=== PATIENT | male | born 1950 | race Caucasian/White ===

== ENCOUNTER → 2023-11-08 14:36 | Outpatient (REF) | payer MEDICARE, OTHER, SELFPAY | LOC: RAD 14:36 | PROVIDERS: ATTENDING PHYSICIAN Internal Medicine Cardiovascular Disease; FAMILY PHYSICIAN Internal Medicine | DX: I71.43 Infrarenal abdominal aortic aneurysm, without rupture (principal) | CPT/HCPCS: 76770 ==

== ENCOUNTER → 2024-01-16 11:06 | Outpatient (REF) | payer MEDICARE, OTHER, SELFPAY ==
[2024-01-16 12:10] LABS: ALT (SGPT) 26 U/L (0-50); AST (SGOT) 30 U/L (17-59); Albumin 4.1 g/dl (3.5-5.0); Alkaline Phosphatase 70 U/L (38-126); Blood Urea Nitrogen 20 mg/dl (9-20); Calcium 9.7 mg/dl (8.4-10.2); Carbon Dioxide 30 mmol/L (22-30); Chloride 102 mmol/L (98-107); Glucose 134 mg/dl (70-99); Sodium 140 mmol/L (135-145); Total Bilirubin 1.3 mg/dl (0.2-1.3); eGFR > 60.00
[2024-01-16 12:19] LABS: Potassium 4.5 mmol/L (3.5-5.1)
== END ==
LOC: REG 11:06
PROVIDERS: ATTENDING PHYSICIAN Internal Medicine Hematology & Oncology
DX: C61 Malignant neoplasm of prostate (principal); C79.51 Secondary malignant neoplasm of bone
CPT/HCPCS: 36415; 80053; 84153

== ENCOUNTER → 2024-04-09 11:09 | Outpatient (REF) | payer MEDICARE, OTHER, SELFPAY ==
[2024-04-09 13:31] LABS: ALT (SGPT) 30 U/L (0-50); AST (SGOT) 36 U/L (17-59); Albumin 4.4 g/dl (3.5-5.0); Alkaline Phosphatase 80 U/L (38-126); Blood Urea Nitrogen 24 mg/dl (9-20); Calcium 9.7 mg/dl (8.4-10.2); Carbon Dioxide 27 mmol/L (22-30); Chloride 106 mmol/L (98-107); Glucose 118 mg/dl (70-99); Potassium 4.4 mmol/L (3.5-5.1); Sodium 143 mmol/L (135-145); Total Bilirubin 1.2 mg/dl (0.2-1.3); Total Protein 7.3 g/dl (6.3-8.2); eGFR > 60.00
== END ==
LOC: REG 11:09
PROVIDERS: ATTENDING PHYSICIAN Internal Medicine Hematology & Oncology; FAMILY PHYSICIAN Internal Medicine
DX: C61 Malignant neoplasm of prostate (principal); C79.51 Secondary malignant neoplasm of bone
CPT/HCPCS: 36415; 80053; 84153

== ENCOUNTER → 2024-07-02 11:53 | Outpatient (REF) | payer MEDICARE, OTHER, SELFPAY ==
[2024-07-02 13:25] LABS: ALT (SGPT) 30 U/L (0-50); AST (SGOT) 35 U/L (17-59); Albumin 4.4 g/dl (3.5-5.0); Alkaline Phosphatase 60 U/L (38-126); Blood Urea Nitrogen 25 mg/dl (9-20); Calcium 10.2 mg/dl (8.4-10.2); Carbon Dioxide 29 mmol/L (22-30); Chloride 103 mmol/L (98-107); Glucose 111 mg/dl (70-99); Potassium 4.8 mmol/L (3.5-5.1); Sodium 145 mmol/L (135-145); Total Bilirubin 1.1 mg/dl (0.2-1.3); Total Protein 7.5 g/dl (6.3-8.2); eGFR > 60.00
== END ==
LOC: REG 11:53
PROVIDERS: ATTENDING PHYSICIAN Internal Medicine Hematology & Oncology; FAMILY PHYSICIAN Internal Medicine
DX: C61 Malignant neoplasm of prostate (principal); C79.51 Secondary malignant neoplasm of bone
CPT/HCPCS: 36415; 80053; 84153

== ENCOUNTER → 2024-09-03 11:07 | Outpatient (REF) | payer MEDICARE, OTHER, SELFPAY ==
[2024-09-03 13:38] LABS: ALT (SGPT) 30 U/L (0-50); AST (SGOT) 34 U/L (17-59); Albumin 4.7 g/dl (3.5-5.0); Alkaline Phosphatase 70 U/L (38-126); Blood Urea Nitrogen 22 mg/dl (9-20); Carbon Dioxide 30 mmol/L (22-30); Chloride 102 mmol/L (98-107); Glucose 100 mg/dl (70-99); Potassium 5.2 mmol/L (3.5-5.1); Sodium 144 mmol/L (135-145); Total Bilirubin 1.3 mg/dl (0.2-1.3); Total Protein 7.8 g/dl (6.3-8.2); eGFR > 60.00
== END ==
LOC: REG 11:07
PROVIDERS: ATTENDING PHYSICIAN Internal Medicine Hematology & Oncology; FAMILY PHYSICIAN Internal Medicine
DX: C61 Malignant neoplasm of prostate (principal); C79.51 Secondary malignant neoplasm of bone
CPT/HCPCS: 36415; 80053; 84153

== ENCOUNTER → 2024-09-20 10:38 | Outpatient (REF) | payer MEDICARE, OTHER, SELFPAY ==
[2024-09-20 11:45] LABS: HDL Cholesterol 54 mg/dl; LDL Cholesterol, Calculated 80 mg/dl; Total Cholesterol 153 mg/dl (50-199); Triglyceride 98 mg/dl (10-149); Very Low Density Lipoprotein 19 mg/dl (0-30)
== END ==
LOC: REG 10:38
PROVIDERS: ATTENDING PHYSICIAN Internal Medicine; OTHER PHYSICIAN Internal Medicine Cardiovascular Disease
DX: I10 Essential (primary) hypertension (principal); E78.00 Pure hypercholesterolemia, unspecified
CPT/HCPCS: 36415; 80061

== ENCOUNTER → 2024-12-06 10:36 | Outpatient (REF) | payer MEDICARE, OTHER, SELFPAY ==
[2024-12-06 11:25] LABS: % Basophils 0.4 % (0-2); % Eosinophils 3.9 % (0-6); % Immature Granulocytes 0.3 % (0-0.5); % Lymphocytes 20.8 % (20.5-51.1); % Monocytes 7.5 % (1.7-9.3); % Neutrophils 67.1 % (42.2-75.2); Absolute Basophils 0.1 10^3/uL (0-0.2); Absolute Eosinophils 0.4 10^3/uL (0-0.7); Absolute Lymphocytes 2.3 10^3/uL (1.2-3.4); Absolute Monocytes 0.8 10^3/uL (0.1-0.6); Absolute Neutrophils 7.5 10^3/uL (1.4-6.5); Hematocrit 46.5 % (39.0-52.0); Hemoglobin 15.3 g/dL (13.0-18.0); Mean Corp Hgb Conc. 32.9 g/dL (33.0-37.0); Mean Corpuscular Hgb 28.9 pg (27.0-31.0); Mean Corpuscular Volume 87.7 fL (80.0-94.0); Mean Platelet Volume 10.8 fL (7.4-10.4); Nucleated Red Blood Cells % 0 % (-); Platelet Count 207 10^3/uL (130-400); Red Cell Dist. Width 13.5 % (11.5-14.5); White Blood Cell Count 11.1 10^3/uL (4.8-10.8)
[2024-12-06 12:10] LABS: ALT (SGPT) 29 U/L (0-50); AST (SGOT) 32 U/L (17-59); Albumin 4.8 g/dl (3.5-5.0); Alkaline Phosphatase 78 U/L (38-126); Blood Urea Nitrogen 22 mg/dl (9-20); Calcium 10.1 mg/dl (8.4-10.2); Carbon Dioxide 30 mmol/L (22-30); Chloride 102 mmol/L (98-107); Glucose 107 mg/dl (70-99); Potassium 4.6 mmol/L (3.5-5.1); Sodium 142 mmol/L (135-145); Total Bilirubin 1.6 mg/dl (0.2-1.3); Total Protein 7.9 g/dl (6.3-8.2); eGFR > 60.00
== END ==
LOC: REG 10:36
PROVIDERS: ATTENDING PHYSICIAN Internal Medicine Hematology & Oncology; FAMILY PHYSICIAN Internal Medicine
DX: C61 Malignant neoplasm of prostate (principal); C79.51 Secondary malignant neoplasm of bone
CPT/HCPCS: 36415; 80053; 84153; 85025

== ENCOUNTER → 2025-01-15 10:28 | Outpatient (REF) | payer MEDICARE, OTHER, SELFPAY ==
[2025-01-15 11:12] LABS: % Basophils 0.3 % (0-2); % Eosinophils 2.2 % (0-6); % Immature Granulocytes 0.5 % (0-0.5); % Lymphocytes 13.6 % (20.5-51.1); % Monocytes 4.9 % (1.7-9.3); % Neutrophils 78.5 % (42.2-75.2); Absolute Basophils 0.1 10^3/uL (0-0.2); Absolute Eosinophils 0.4 10^3/uL (0-0.7); Absolute Immature Granulocytes 0.1 10^3/uL (0-0.05); Absolute Lymphocytes 2.3 10^3/uL (1.2-3.4); Absolute Monocytes 0.8 10^3/uL (0.1-0.6); Absolute Neutrophils 13.4 10^3/uL (1.4-6.5); Hematocrit 48.3 % (39.0-52.0); Hemoglobin 16.1 g/dL (13.0-18.0); Mean Corp Hgb Conc. 33.3 g/dL (33.0-37.0); Mean Corpuscular Hgb 28.7 pg (27.0-31.0); Mean Corpuscular Volume 86.1 fL (80.0-94.0); Mean Platelet Volume 10.7 fL (7.4-10.4); Nucleated Red Blood Cells % 0 % (-); Platelet Count 262 10^3/uL (130-400); Red Blood Cell Count 5.61 10^6/uL (4.70-6.10); Red Cell Dist. Width 13.2 % (11.5-14.5)
[2025-01-15 12:10] LABS: ALT (SGPT) 32 U/L (0-50); AST (SGOT) 33 U/L (17-59); Albumin 4.7 g/dl (3.5-5.0); Alkaline Phosphatase 83 U/L (38-126); Blood Urea Nitrogen 21 mg/dl (9-20); Calcium 10.1 mg/dl (8.4-10.2); Carbon Dioxide 29 mmol/L (22-30); Chloride 104 mmol/L (98-107); Glucose 115 mg/dl (70-99); Potassium 4.7 mmol/L (3.5-5.1); Sodium 144 mmol/L (135-145); Total Bilirubin 1.1 mg/dl (0.2-1.3); Total Protein 7.9 g/dl (6.3-8.2); eGFR > 60.00
== END ==
LOC: RAD 10:28
PROVIDERS: ATTENDING PHYSICIAN Internal Medicine Hematology & Oncology; FAMILY PHYSICIAN Internal Medicine
DX: C61 Malignant neoplasm of prostate (principal); C79.51 Secondary malignant neoplasm of bone
CPT/HCPCS: 36415; 73502; 80053; 84153; 85025

== ENCOUNTER 2025-03-07 13:12 | Emergency (ER) | payer MEDICARE, OTHER, SELFPAY ==
[2025-03-07] VITALS (18 sets, daily range): BP systolic 83–155; BP diastolic 54–116; BMI 27.6
[2025-03-07 13:50] LABS: % Basophils 0.4 % (0-2); % Eosinophils 0.4 % (0-6); % Immature Granulocytes 0.2 % (0-0.5); % Lymphocytes 16.5 % (20.5-51.1); % Monocytes 8.9 % (1.7-9.3); % Neutrophils 73.6 % (42.2-75.2); Absolute Basophils 0.1 10^3/uL (0-0.2); Absolute Eosinophils 0.1 10^3/uL (0-0.7); Absolute Monocytes 1.1 10^3/uL (0.1-0.6); Absolute Neutrophils 9.1 10^3/uL (1.4-6.5); Hematocrit 47.3 % (39.0-52.0); Mean Corp Hgb Conc. 33.8 g/dL (33.0-37.0); Mean Corpuscular Hgb 29.3 pg (27.0-31.0); Mean Corpuscular Volume 86.6 fL (80.0-94.0); Mean Platelet Volume 11.4 fL (7.4-10.4); Nucleated Red Blood Cells % 0 % (-); Platelet Count 234 10^3/uL (130-400); Red Blood Cell Count 5.46 10^6/uL (4.70-6.10); Red Cell Dist. Width 13.5 % (11.5-14.5); White Blood Cell Count 12.3 10^3/uL (4.8-10.8)
[2025-03-07 13:59] LABS: APTT 26.5 Sec (23.4-35.0); INR 1.04; PT 14.1 Sec (11.4-14.6)
[2025-03-07 14:01] LABS: ALT (SGPT) 27 U/L (0-50); AST (SGOT) 29 U/L (17-59); Albumin 4.8 g/dl (3.5-5.0); Alkaline Phosphatase 77 U/L (38-126); Blood Urea Nitrogen 27 mg/dl (9-20); Calcium 10.3 mg/dl (8.4-10.2); Carbon Dioxide 24 mmol/L (22-30); Chloride 110 mmol/L (98-107); Estimated Creatinine Clearance 48 ml/min; Glucose 136 mg/dl (70-99); Potassium 4.5 mmol/L (3.5-5.1); Sodium 145 mmol/L (135-145); Total Bilirubin 1.3 mg/dl (0.2-1.3); Total Protein 8.1 g/dl (6.3-8.2); eGFR 52.09
[2025-03-07 14:12] LABS: Troponin I 0.028 ng/ml
--- NOTE | 2025-03-07 15:38 | ED.GENMED ---
History of Present Illness
General
Chief Complaint: Chest Pain
Time Seen by Provider: 03/07/25 13:23
History of Present Illness
History of Present Illness:
74-year-old male history of hypertension, hyperlipidemia, CAD with previous stents/CABG presenting with dizziness starting today. Patient states that he was playing golf at the 11th hole when he started feeling dizzy and unwell. Patient denies
chest pain, shortness of breath, palpitations. Patient denies history of atrial fibrillation. Patient states that he has been eating/drinking well. No vomiting, diarrhea or urinary symptoms
Past History
Past History
ED Past Medical History: CAD, Cancer (Prostate cancer), HTN and Hypercholesterolemia
ED Past Surgical History: Appendectomy and Cardiac (CABG X3 vessels, Stent X1,)
Social History
Tobacco: Non-smoker
Alcohol: Occasional
Personal:
Living: with family
Phy Exam
Physical Exam
Physical Exam:
General: Alert, no acute distress
Head: NCAT
Eyes: clear conjunctiva
Neck: supple
Cardiac: Heart tachycardic, irregularly irregular rhythm
Lungs: clear to auscultation bilaterally. No wheezes, rales, or rhonchi. Speaking full unlabored sentences. No respiratory distress.
Abdomen: soft, nondistended nontender. No rebound or guarding.
MSK: no lower extremity edema bilaterally. No deformity
Skin: warm, dry
Neuro: Alert and oriented x3. no focal deficits
Scores
Heart Score for Chest Pain Patients
STEMI patient?: No
History: Slightly or Non-Suspicious
ECG: Normal
Age: >/= 65 years
Risk Factors: >/= 3 Risk Factors or History of CAD
Troponin: </= Normal Limit
Heart Score for Chest Pain Patients: 4
Heart Score Risk: 20.3% MACE over next 6 weeks
Course
Orders/Labs/Results
Orders:
Orders
03/07/25 13:13
Electrocardiogram (*1) Urgent
Reason for Study: Chest Pain
EKG- Treatment ONCE
03/07/25 13:34
Complete Blood Count/With Diff Urgent
Comprehensive Metabolic Panel Urgent
PTT Urgent
Prothrombin Time Urgent
Troponin I Urgent
03/07/25 13:41
Propofol [Diprivan] 20 ml .ROUTE .STK-MED
03/07/25 13:51
Electrocardiogram (*1) Urgent
Reason for Study: Other
Other Reason for Exam: post cardioversion
EKG- Treatment ONCE
Abnormal Lab Results
03/07/25
13:34
WBC 12.3 H 10^3/uL
(4.8-10.8)
MPV 11.4 H fL
(7.4-10.4)
Absolute Neuts (auto) 9.1 H 10^3/uL
(1.4-6.5)
Absolute Monos (auto) 1.1 H 10^3/uL
(0.1-0.6)
Lymphocytes % 16.5 L %
(20.5-51.1)
Chloride 110 H mmol/L
(98-107)
BUN 27 H mg/dl
(9-20)
Creatinine 1.4 H mg/dL
(0.7-1.3)
Glucose 136 H mg/dl
(70-99)
Calcium 10.3 H mg/dl
(8.4-10.2)
03/07/25 13:34
03/07/25 13:34
Vital Signs
Initial and Last Documented VS:
Initial Vital Signs
Temp Pulse Resp BP Pulse Ox
98.9 F 144 24 100/66 98
03/07/25 13:16 03/07/25 13:16 03/07/25 13:16 03/07/25 13:16 03/07/25 13:16
Last Documented Vital Signs
Temp Pulse Resp BP Pulse Ox
98.5 F 74 17 155/89 96
03/07/25 15:40 03/07/25 15:33 03/07/25 15:33 03/07/25 15:42 03/07/25 15:30
Procedures
Moderate Sedation
ASA Risk Score: Class II
Chart and allergies reviewed: Yes
Consent for anesthesia obtained: Yes
Time out completed (validating right patient & procedure): Yes
Moderate Sedation Start Time(when first medication is given): 13:49
History of difficult intubation: No
Airway free of obstruction: No
Patient has a gag reflex: Yes
Patient is able to open mouth: Yes
Patient has no dentures: Yes
Patient has no loose teeth: Yes
Medication administered by Provider during Moderate Sedation: IV Propofol (mg)
Total dose administered: 50
Time drug administered: 13:49
Moderate Sedation Procedure End Time: 14:03
Cardioversion
Indication:: Afib
Performed by:: O'Andre
Synchronized?: Yes
Energy Used: 200 joules
Number of attempts: 1
Successful?: Yes
Complications: no
ASA Risk Score: Class II
Any reaction or bad outcome to prior sedation/anesthesia?: No history of a reaction
Sedation level to be attained: moderate
Chart and allergies reviewed: Yes
Patient reassessed prior to sedation: Yes
Time out completed at (validating right patient & procedure): 13:45
History of difficult intubation: No
Airway free of obstruction: No
Patient has a gag reflex: Yes
Patient is able to open mouth: Yes
Patient has no dentures: Yes
Patient has no loose teeth: Yes
Medication administered by Provider during Moderate Sedation: IV Propofol (mg)
Total dose administered: 50
Time drug administered: 13:49
Start Time: 13:49
Stop Time: 14:05
MDM/Problems Addressed
Differential Diagnosis Includes:
Symptomatic atrial fibrillation, electrolyte abnormality, CAROL, NSTEMI
MDM/Problems Addressed:
74-year-old male presenting with new onset atrial fibrillation with RVR starting today. Initial EKG shows atrial fibrillation at 144 bpm with QRS [address] depressions likely rate related. Given atrial fibrillation started today,
discussed risk versus benefits of conscious sedation with cardioversion with patient versus starting rate controlling medication. Patient agreeable to conscious sedation with cardioversion. Successfully cardioverted patient. Repeat EKG shows
sinus rhythm at 79 bpm with AZ 214 QTc 454 no acute ischemic changes. On reevaluation, patient states that he feels better. Labs reviewed, significant for minimal CAROL with creatinine 1.4, BUN 27. Patient received 500 normal saline. Troponin
within normal limits. Discussed results with patient at bedside. [id number], recommended starting anticoagulation with patient. Patient initially hesitant but then agreeable. potline monitor continues to show normal sinus rhythm and rates in
the 70s, blood pressure wnl. Stable for discharge with cardiology follow-up.
*Critical Care Note
Total Time (30-74mins, 75-104mins- exclusive of procedures): Not Applicable
ED Attending Note
-
Portions of this chart may have been created with voice recognition software.� Occasional wrong word or��sound alike� substitutions may have occurred due to the inherent limitations of voice recognition software.
Discharge Plan
Departure
Patient Disposition: Home (Routine Discharge)
Date of Disposition: 03/07/25
Time of Disposition: 15:36
Patient with high blood pressure during this ER visit?: No
Discharge Problem:
Atrial fibrillation with RVR
Instructions: Atrial fibrillation - Discharge instructions, Chest Pain CBC Follow Up
Prescriptions:
New
Eliquis 5 mg tablet
5 mg PO BID Qty: 90 0RF
No Action
atorvastatin 10 MG tablet
10 mg PO QPM
pediatric multivitamin 1 EACH tablet,chewable
1 ea PO DAILY
aspirin 81 MG tablet,delayed release (DR/EC)
81 mg PO DAILY
lisinopril 10 MG tablet
10 mg PO DAILY
metoprolol tartrate 25 MG tablet
12.5 mg PO BID
coenzyme [id number] E [Co Q-10 (with Vit E)] 1 EACH capsule
1 ea PO DAILY
Referrals:
Daniel Victoria MD [Family Provider, Internal Medicine]
Activity Restrictions/Additional Instructions:
Take Eliquis twice daily
Follow-up with cardiology
Return to the emergency department for chest pain, shortness of breath, palpitations, dizziness or new/worsening symptoms. You are now on a blood thinner. Return to the emergency department for any head trauma, black/bloody stool or nosebleeds
Interventions
Interventions:
*Risk Screen - Suicide Last Done: 03/07/25 13:16
*General Assessment Last Done: 03/07/25 13:16
*Neglect/Abuse Screening Last Done: 03/07/25 15:40
*ED- Fall Risk Assessment Last Done: 03/07/25 15:40
*ED COVID-19 Vaccine History Last Done: 03/07/25 13:57
*Nursing Disposition Last Done: 03/07/25 15:40
ED- Cardiac Assessment Last Done: 03/07/25 13:35
Discharge Date and Time
Discharge Date/Time: 03/07/25 15:45
Print Language: SETSWANA
== END 2025-03-07 15:45 | disposition home or self-care (01) ==
LOC: EMR 13:12
PROVIDERS: EMERGENCY PHYSICIAN Emergency Medicine; FAMILY PHYSICIAN Internal Medicine
DX: I48.91 Unspecified atrial fibrillation (principal); I10 Essential (primary) hypertension; E78.00 Pure hypercholesterolemia, unspecified; Z95.1 Presence of aortocoronary bypass graft
CPT/HCPCS: 99285; 92960; 99152; 80053; 84484; 85025; 85610; 85730; 93005

== ENCOUNTER → 2025-03-12 08:43 | Outpatient (REF) | payer MEDICARE, OTHER, SELFPAY ==
[2025-03-12 09:42] LABS: % Basophils 0.8 % (0-2); % Eosinophils 4.1 % (0-6); % Immature Granulocytes 0.3 % (0-0.5); % Lymphocytes 28.9 % (20.5-51.1); % Monocytes 6.6 % (1.7-9.3); % Neutrophils 59.3 % (42.2-75.2); Absolute Basophils 0.1 10^3/uL (0-0.2); Absolute Eosinophils 0.4 10^3/uL (0-0.7); Absolute Lymphocytes 2.6 10^3/uL (1.2-3.4); Absolute Monocytes 0.6 10^3/uL (0.1-0.6); Absolute Neutrophils 5.4 10^3/uL (1.4-6.5); Hematocrit 48.4 % (39.0-52.0); Hemoglobin 16.1 g/dL (13.0-18.0); Mean Corp Hgb Conc. 33.3 g/dL (33.0-37.0); Mean Corpuscular Hgb 29.2 pg (27.0-31.0); Mean Corpuscular Volume 87.7 fL (80.0-94.0); Mean Platelet Volume 11.2 fL (7.4-10.4); Nucleated Red Blood Cells % 0 % (-); Platelet Count 218 10^3/uL (130-400); Red Blood Cell Count 5.52 10^6/uL (4.70-6.10); Red Cell Dist. Width 13.2 % (11.5-14.5)
[2025-03-12 10:35] LABS: ALT (SGPT) 29 U/L (0-50); AST (SGOT) 32 U/L (17-59); Albumin 4.9 g/dl (3.5-5.0); Alkaline Phosphatase 73 U/L (38-126); Blood Urea Nitrogen 22 mg/dl (9-20); Carbon Dioxide 30 mmol/L (22-30); Chloride 108 mmol/L (98-107); Glucose 108 mg/dl (70-99); Potassium 4.5 mmol/L (3.5-5.1); Sodium 145 mmol/L (135-145); Total Bilirubin 1.3 mg/dl (0.2-1.3); Total Protein 8.4 g/dl (6.3-8.2); eGFR > 60.00
[2025-03-12 10:46] LABS: TSH Reflex To Free T4 3.79 uIU/ml (0.47-4.68)
== END ==
LOC: REG 08:43
PROVIDERS: ATTENDING PHYSICIAN Internal Medicine Hematology & Oncology; FAMILY PHYSICIAN Internal Medicine; OTHER PHYSICIAN Internal Medicine Cardiovascular Disease
DX: C61 Malignant neoplasm of prostate (principal); C79.51 Secondary malignant neoplasm of bone; I48.91 Unspecified atrial fibrillation
CPT/HCPCS: 36415; 80053; 84153; 84443; 85025

== ENCOUNTER → 2025-03-25 10:08 | Outpatient (REF) | payer MEDICARE, OTHER, SELFPAY ==
--- NOTE | 2025-03-25 10:30 | CARDSERVLU ---
Echocardiogram with [facility] completed after protocol screening completed. Allergies verified.
Patent IV site: __left AC___
IV site flushed with 0.9% NaCl pre and post administration.
Diluted bolus method utilized to enhance visualization of ventricular resendiz.
Total volume given: ____ 4.0mL
Patient tolerated all procedures well without complications.
== END ==
LOC: RCS 10:08
PROVIDERS: ATTENDING PHYSICIAN Internal Medicine Cardiovascular Disease; FAMILY PHYSICIAN Internal Medicine
DX: I48.91 Unspecified atrial fibrillation (principal)
CPT/HCPCS: 93306; Q9950

== ENCOUNTER → 2025-03-27 11:17 | Outpatient (REF) | payer MEDICARE, OTHER, SELFPAY | LOC: RCS 11:17 | PROVIDERS: ATTENDING PHYSICIAN Internal Medicine Cardiovascular Disease; FAMILY PHYSICIAN Internal Medicine | DX: I25.10 Atherosclerotic heart disease of native coronary artery without angina pectoris (principal); I48.91 Unspecified atrial fibrillation | CPT/HCPCS: 78452; 93017; A9500; J2785 ==

== ENCOUNTER → 2025-04-02 07:46 | Outpatient (REF) | payer MEDICARE, OTHER, SELFPAY | LOC: PAVMRI 07:46 | PROVIDERS: ATTENDING PHYSICIAN Nurse Practitioner Adult Health; FAMILY PHYSICIAN Internal Medicine; REFERRING PHYSICIAN Internal Medicine Hematology & Oncology | DX: C61 Malignant neoplasm of prostate (principal); C79.51 Secondary malignant neoplasm of bone | CPT/HCPCS: 73723; A9575 ==

== ENCOUNTER 2025-06-14 20:29 | Inpatient (IN) | payer MEDICARE, BC, SELFPAY ==
[2025-06-13] VITALS (14 sets, daily range): BP systolic 139–180; BP diastolic 35–105; BMI 27.6; BMI 27.1
[2025-06-13 12:27] LABS: Hematocrit 43.2 % (39.0-52.0); Hemoglobin 14.7 g/dL (13.0-18.0); Mean Corp Hgb Conc. 34.0 g/dL (33.0-37.0); Mean Corpuscular Volume 86.4 fL (80.0-94.0); Nucleated Red Blood Cells % 0 % (-); Platelet Count 194 10^3/uL (130-400); Red Cell Dist. Width 13.2 % (11.5-14.5)
[2025-06-13 12:38] LABS: ALT (SGPT) 29 U/L (0-50); AST (SGOT) 30 U/L (17-59); Albumin 4.5 g/dl (3.5-5.0); Alkaline Phosphatase 55 U/L (38-126); Blood Urea Nitrogen 25 mg/dl (9-20); Calcium 9.5 mg/dl (8.4-10.2); Carbon Dioxide 25 mmol/L (22-30); Chloride 109 mmol/L (98-107); Estimated Creatinine Clearance 61 ml/min; Glucose 106 mg/dl (70-99); Potassium 4.2 mmol/L (3.5-5.1); Sodium 142 mmol/L (135-145); Total Protein 7.4 g/dl (6.3-8.2); eGFR > 60.00
--- NOTE | 2025-06-13 12:46 | ED.GENMED ---
History of Present Illness
General
Chief Complaint: Chest Pain
Source: patient
Exam Limitations: none
Time Seen by Provider: 06/13/25 12:16
History of Present Illness
History of Present Illness:
74-year-old male with history of atrial fibrillation status post cardioversion on Eliquis presents with exertional chest pain worsening over the past week or so. He states today about 5 to 10 minutes into his 20-minute walk he developed chest
pressure that only resolved when he got home and sat down. He has a history of coronary artery disease requiring a stent in the as well as triple-vessel bypass in 2007. He is followed by cardiology here. No leg swelling or calf pain. At the
time my exam he denies any chest pain. During the episode today he was slightly nauseous without diaphoresis
Past History
Past History
ED Past Medical History: CAD, Cancer (Prostate cancer), HTN and Hypercholesterolemia
ED Past Surgical History: Appendectomy and Cardiac (CABG X3 vessels, Stent X1,)
Social History
Tobacco: Non-smoker
Alcohol: Occasional
Personal:
Living: with family
Phy Exam
Physical Exam
Physical Exam:
General: Well-appearing male no acute respiratory distress
HEENT: Normocephalic atraumatic
Heart: Regular rate and rhythm lungs: Clear no wheeze
Abdomen is soft nontender extremities: No cyanosis or
Scores
Heart Score for Chest Pain Patients
STEMI patient?: No
History: Highly Suspicious
ECG: Nonspecific Repolarization
Age: >/= 65 years
Risk Factors: >/= 3 Risk Factors or History of CAD
Troponin: >1 - <3 x Normal Limit
Heart Score for Chest Pain Patients: 8
Heart Score Risk: 72.7 % MACE over next 6 weeks
Course
Orders/Labs/Results
Orders:
Orders
06/13/25 11:35
EKG [Electrocardiogram (*1)] Urgent
Reason for Study: Chest Pain
EKG- Treatment ONCE
06/13/25 12:08
Electrocardiogram (*1) Urgent
Reason for Study: Chest Pain
Cardiac Monitoring- Treatment ONCE
EKG- Treatment ONCE
IV Insert/Care/Rem.- Treatment PRN
O2 Therapy [RESP] Urgent
Titrate/Wean O2 to maintain O2 sat greater than (%): 90
Special Instructions: Maintain sats >/=90%
Pulse Ox/spot Check [RESP] Urgent
Quantity: 1
Special Instructions: ON ROOM AIR
06/13/25 12:10
Complete Blood Count/With Diff Urgent
Comprehensive Metabolic Panel Urgent
Troponin I Urgent
06/13/25 14:59
Troponin I Urgent
06/13/25 15:02
Aspirin 325 mg PO NOW STA
06/14/25 08:00
Aspirin Chewable [Low Strength Aspirin] 81 mg PO DAILY
Abnormal Lab Results
06/13/25
12:10
MPV 11.0 H fL
(7.4-10.4)
Absolute Monos (auto) 0.7 H 10^3/uL
(0.1-0.6)
Chloride 109 H mmol/L
(98-107)
BUN 25 H mg/dl
(9-20)
Glucose 106 H mg/dl
(70-99)
06/13/25 12:10
06/13/25 12:10
Vital Signs
Initial and Last Documented VS:
Initial Vital Signs
Temp Pulse Resp BP Pulse Ox
97.8 F 72 16 168/99 97
06/13/25 11:38 06/13/25 11:38 06/13/25 11:38 06/13/25 11:38 06/13/25 11:38
Last Documented Vital Signs
Temp Pulse Resp BP Pulse Ox
97.8 F 63 18 161/99 97
06/13/25 11:38 06/13/25 15:05 06/13/25 14:15 06/13/25 14:46 06/13/25 15:05
MDM/Problems Addressed
Differential Diagnosis Includes:
Exertional chest pain in a patient with history of coronary artery disease. Followed cardiology here. Review of chart demonstrates he had a stress echo performed in March of this year which showed ejection fraction of 60 to 65%. Currently no chest
pain EKG shows sinus rhythm with a rate of 68. No ST elevation question possible inversion in aVL and flattening laterally
Troponin is pending. Consider ACS versus deconditioning. Unlikely to be PE secondary to anticoagulated state. Patient is pain-free currently do not suspect dissection
*Pulse Oximetry
SaO2: 96
Oxygen Mode of Delivery: Room air
Patient hypoxic: no
*Critical Care Note
Total Time (30-74mins, 75-104mins- exclusive of procedures): Not Applicable
Update Note
Update Note:
Initial troponin within normal range but not undetectable at 0.022. Discussed with cardiology who saw the patient. They will see the patient in consult. Patient will be admitted to the hospital for possible Child Nutrition Director in the morning. Emergency
room attending and hospitalist made aware
ED Attending Note
-
Portions of this chart may have been created with voice recognition software.� Occasional wrong word or��sound alike� substitutions may have occurred due to the inherent limitations of voice recognition software.
Discharge Plan
Departure
Patient Disposition: Admit
Date of Disposition: 06/13/25
Time of Disposition: 15:18
Presentation/result/management discussed w/ accepting MD/DO: Hospitalist
Discharge Problem:
Chest pain
Prescriptions:
No Action
atorvastatin 10 MG tablet
10 mg PO QPM
metoprolol tartrate 25 MG tablet
12.5 mg PO BID
Eliquis 5 mg tablet
5 mg PO BID Qty: 90 0RF
lisinopril 30 mg Tablet
30 mg PO DAILY
coQ10 (ubiquinol) 100 mg Capsule
100 mg PO DAILY
Referrals:
Daniel Victoria MD [Family Provider, Internal Medicine]
Interventions
Interventions:
*Risk Screen - Suicide Last Done: 06/13/25 11:40
*General Assessment Last Done: 06/13/25 12:06
*Neglect/Abuse Screening Last Done: 06/13/25 11:40
*ED COVID-19 Vaccine History Last Done: 06/13/25 12:06
ED- Cardiac Assessment Last Done: 06/13/25 12:11
Discharge Date and Time
Print Language: LAO
[2025-06-13 12:52] LABS: Troponin I 0.022 ng/ml
--- NOTE | 2025-06-13 14:19 | CON.CAR ---
Addendum entered and electronically signed by Ander Moeller MD 06/13/25 17:06:
I saw and examined the patient.
The [employer] SCARFER TENDER's note was reviewed and I agree with the note.
Comment: 74 y/o male (patient of Dr. Hudson) with PAF (recently diagnosed) on Eliquis, CAD with hx LAD stent 1996, then CABG 2007, and HLD who is here for evaluation of chest discomfort. It certainly seems that his anginal symptoms are becoming more
frequent at this point. This would be more consistent wtih unstable angina. He also has low level troponins detected. GIven his significant risk factors, we will plan on cath tomorrow.
- Heparin gtt tonight
- holding Eliquis
- cath in AM
Original Note:
Consultation
Consultation Request
Date/Time Consultation Requested: 06/13/25 1323
Date/Time Consultation Performed: 06/13/25 1420
Requesting Provider: Jeison Carney
Performing Provider: Addie KILLIAN for Dr. Moeller
Reason for Consultation: chest discomfort
Medical History
-
Chief Complaint: chest discomfort
History of Present Illness:
74 y/o male (patient of Dr. Hudson) with PAF (recently diagnosed) on Eliquis, CAD with hx LAD stent 1996, then CABG 2007, and HLD who is here for evaluation of chest discomfort. He has noticed this mostly with walking and it goes away with rest.
About 5 days ago, it woke him up around 1 AM. Last episode this AM with walking. There is associated nausea. Feels like his previous angina. EKG shows anterolateral T wave abnormalities. Troponin is unremarkable. He has no CP and is in no distress
at the time of my assessment.
Past Medical History
Past Medical History: Arrhythmias, CAD, Cancer (prostate) and Hypercholesterolemia
Social History
Tobacco: Non-Smoker
Family History
Family History: CAD (mom, brother)
Allergies / Home Medications
Allergy/AdvReac Type Severity Reaction Status Date / Time
NKA - No Known Allergies Allergy Unknown - Uncoded 03/07/25 13:16
�Medication �Instructions �Recorded �Confirmed �Type
aspirin 81 mg tablet,delayed 81 mg PO DAILY 09/17/13 12/19/17 History
release
atorvastatin 10 mg tablet 10 mg PO QPM 09/17/13 12/19/17 History
coenzyme [id number]-[id number] E 100 mg-5 1 ea PO DAILY 09/17/13 12/19/17 History
unit capsule (Co Q-10 (with Vit E))
lisinopril 10 mg tablet 10 mg PO DAILY 09/17/13 12/19/17 History
metoprolol tartrate 25 mg tablet 12.5 mg PO BID 09/17/13 12/19/17 History
pediatric multivitamin 1 ea PO DAILY 09/17/13 12/19/17 History
apixaban 5 mg tablet (Eliquis) 5 mg PO BID #90 tabs 03/07/25 Rx
Review of Systems
-
History Source: Patient
All other systems: Negative unless noted
Cardiac: Chest Pain
Abdomen/GI: Nausea
Physical Exam
Vital Signs
Temp Pulse Resp BP Pulse Ox
97.8 F 57 19 149/90 96
06/13/25 11:38 06/13/25 13:30 06/13/25 13:30 06/13/25 13:00 06/13/25 13:30
Lab Results
06/13/25 12:10
06/13/25 12:10
Troponin I 0.022 ng/ml 06/13/25 12:10
Physical Exam
General: Well Developed, Well Nourished and No Apparent Distress
HEENT: Normocephalic and Anicteric
Respiratory: Clear
Cardiac: Regular Rhythm
Musculoskeletal: No Edema
Skin: Warm and Dry
Neuro: AO x 3
Psych: Calm
Impression / Plan
-
Chest discomfort:
-sounds likely typical angina. None at present.
-follow trops and EKG's
-plan for left heart cath in AM- quality control lab technician charge alerted. Will give aspirin in preparation for this.
-if trops rise, would add heparin
-check lipids, on statin- per OP note, did not tolerate higher dosing
CAD with hx stenting, followed by CABG 2007:
-eval as above
PAF:
-stable in SR
-on Eliquis for OAC. Hold AM dose prior to cath.
HTN:
-elevated in ER
-continue ACEI and BB and monitor- may need adjustment upward in BP meds
Data Reviewed
-
EKG: Tracing Personally Visualized and interpreted (SR with ST/T abnormalities inferolateral)
Medical Tests (Nuc Med, Echo etc): Report Reviewed by me (echo 03/2025: Normal left ventricular systolic function. Estimated left ventricular ejection fraction is 60-65% . Wall motion analysis is limited by the image quality. Mild pulmonic
regurgitation Mildly dilated aortic root) and Other (stress test 03/27/25: Small mid inferolateral perfusion defect which is reversible. Defect improves with prone imaging which may suggest its due to soft tissue, but a small area of ischemia cannot
be excluded. Ejection fraction 56%)
Labs: Labs Reviewed by me
--- NOTE | 2025-06-13 15:17 | HPS.HSE ---
Family Physician
-
Family Physician: Daniel Victoria
Chief Complaint
-
Recurrent chest pain
History of Present Illness
Pleasant 74-year-old male with history of coronary artery disease status post stent in 1997 and CABG in 2007, hypertension, A-fib with a recent cardioversion 3 months ago, stress test and anticoagulated with Eliquis and pain and osteoarthritis of
the right hip over the last 6 months which recently got better which preventing him from walking around much and playing golf, recently his right hip pain got better and he is able to walk and start walking again over the last few days anytime he
walks he developed a centrally located chest pain and pressure mild to moderate with no radiation and usually eases up when he rests and sits down admit couple episodes of the nausea and sweating but no vomiting, denies any cough or congestion or
shortness of breath fever or chills or any bleeding. No changes to her urine color
No recent travel or sick contact.
Seen by cardiology planning cardiac cath tomorrow.
Patient awake, alert and oriented x 3 hold appropriate conversation accompanied by the at the bedside
Medical History
Past Medical History
Past Medical History: Reports Other
Additional Past Medical History:
Past medical history
Review:
Coronary artery disease status post LAD stenting in 2017 and CABG 2007
Hypertension
A-fib with cardioversion 3 months ago
Hypertension
Peripheral vascular disease
Dyslipidemia
Prostate cancer
Melanoma
Surgical history:
ALBER cardioversion
Appendectomy
Cardiac cath and stenting
Coronary artery bypass graft
Skin cancer removal for melanoma
Social history: Lives with the independently, no smoking and rarely drinks alcohol and no drug and is independent.
Family history: Positive for hypertension coronary artery disease.
Past Surgical History: Reports Other
Social History
Drug: Other
Living: Other
Family History
Family History: Other
Allergies / Home Medications
Allergies reflects when Allergies were last updated in [employer].
Home Medications with original date entered in [employer]
Allergy/Medication List:
Allergies
Allergy/AdvReac Type Severity Reaction Status Date / Time
NKA - No Known Allergies Allergy Unknown - Uncoded 03/07/25 13:16
Home Medications
atorvastatin 10 mg tablet 10 mg PO QPM 09/17/13
metoprolol tartrate 25 mg tablet 12.5 mg PO BID 09/17/13
apixaban 5 mg tablet (Eliquis) 5 mg PO BID #90 tabs 03/07/25
coQ10 (ubiquinol) 100 mg capsule 100 mg PO DAILY 06/13/25
lisinopril 30 mg tablet 30 mg PO DAILY 06/13/25
Review of Systems
-
A 12 point ROS was completed and negative except as noted: Yes
Physical Exam
Vital Signs
Vital Signs
Temp Pulse Resp BP Pulse Ox
97.8 F 63 18 161/99 97
06/13/25 11:38 06/13/25 15:05 06/13/25 14:15 06/13/25 14:46 06/13/25 15:05
Physical exam:
General: Awake, alert and oriented x3, not in distress and holds appropriate conversation.
HEENT: No active discharge, ecchymosis or bruising, moist lips, tongue and mucous membrane.
Eyes: No discharge or red conjunctiva, no nystagmus, pupils are reactive and equal
Neck:Supple, no JVD no bruit no goiter.
Respiratory: Normal AP contour and diameter, normal chest wall movement, normal respiratory effort, no respiratory distress,
Lungs: Good air entry bilaterally, no wheezing or rhonchi, no rales or crackles
Heart: S1, S2 regular, normal rate, no added sound.
Gastrointestinal: Positive bowel sounds, soft, nontender, no guarding or rigidity or organomegaly
Musculoskeletal: , no chest wall abnormality or tenderness. All joints and extremities have good range of motion, no muscle tenderness or any joint swelling or tenderness.
Extremities: No pitting edema, good peripheral pulses, good range of motion
Skin: Warm and dry, no ulceration, normal color.
Neurological: Awake, alert and oriented x3, good muscle tone,, speech clear and comprehensive, good muscle tone, normal sensory and motor function
Psychiatric: Normal mood, normal thought and judgment, normal affect,
Physical Exam
General: Other
Laboratory Results
-
06/13/25 12:10
06/13/25 12:10
Laboratory Results
Total Bilirubin 1.0 mg/dl (0.2-1.3) 06/13/25 12:10
AST 30 U/L (17-59) 06/13/25 12:10
ALT 29 U/L (0-50) 06/13/25 12:10
Alkaline Phosphatase 55 U/L (38-126) 06/13/25 12:10
Troponin I 0.022 ng/ml 06/13/25 12:10
EKG showed normal sinus rhythm with first-degree AV block DE around 214, evidence of prior infarct in inferior leads with nonspecific, inverted T wave abnormality in anterior lateral leads, otherwise no acute findings.
Data Reviewed
-
Medical Tests (Nuc Med, Echo, EKG etc): Image Personally Visualized and interpreted, Discussed with Patient and Discussed with Family
Lab Data: Labs Reviewed by me, Discussed with Patient and Discussed with Family
Old Records: Reviewed
Impression/Plan
-
IMPRESSION:
74-year-old male with history of coronary artery disease presents with recurrent chest pain triggered by exertion is up with rest, can concern for coronary artery disease while other causes including musculoskeletal or hypertensive urgency as blood
pressure was elevated to be considered, doubt pulm embolism as heart rate is in 60s and maintain normal saturation is already on Eliquis.
Recurrent chest pain:
- Can concerning for coronary artery disease with known history of CABG and stenting.
- Other causes musculoskeletal hypertensive urgency need to be considered as pressure is elevated.
- Doubt pulm embolism
- Seen by cardiology and planning cardiac cath tomorrow
- N.p.o. after midnight
- Hold Eliquis
- Continue metoprolol, lisinopril and monitor vital signs closely
- Monitor vital sign and advise about monitoring blood pressure as he is not checking it regularly.
Hypertensive urgency:
- Blood pressure is been elevated and admits lately not checking it but even prior to this was a little high at home. That may be causing his chest pain.
- For now continue lisinopril and metoprolol
- Further adjustment of medication needed for better control of blood pressure discussed with the patient
Coronary artery disease status post stent and CABG:
- Known history, continue atorvastatin, lisinopril, metoprolol
- Plan for cardiac cath tomorrow
A-fib:
- Status post cardioversion 3 months ago
- Takes Eliquis and metoprolol
- Hold Eliquis for now as she had a dose in the morning already.
All discussed with the patient and the in detail and expressed understanding of the question answered
CODE STATUS full code
DVT prophylaxis Eliquis today and tomorrow pending cardiac catheterization anticoagulation may need to be restarted, for now add SCD
[2025-06-13] MEDS: ASPIRIN 325 MG PO (15:21)
[2025-06-13 15:35] LABS: Troponin I 0.024 ng/ml
[2025-06-13] MEDS: LOPRESSOR 12.5 MG PO (20:37)
[2025-06-13] MEDS: HEPARIN 4000 UNITS IV (20:38)
[2025-06-13] MEDS: HEPARIN 25000 UNITS/250 ML IV (20:38)
[2025-06-13] MEDS: LIPITOR 10 MG PO (20:39)
[2025-06-13 20:46] LABS: APTT 32.1 Sec (23.4-35.0)
[2025-06-13 20:59] LABS: Troponin I 0.025 ng/ml
--- NOTE | 2025-06-13 22:29 | PTCARENOTE ---
Received pt from ER into 2243. Pt is AAOx3 SR with 1st degree HB VSS denies cp. Heparin bolus and gtt started. EKG done labs sent. Pt was oriented to the room and POC discussed including NPO after mn. Call watson within reach.
[2025-06-13] MEDS: APRESOLINE 5 MG IV (23:21)
[2025-06-13 23:28] LABS: Troponin I 0.028 ng/ml
[2025-06-14] VITALS (15 sets, daily range): BP systolic 134–212; BP diastolic 81–119
[2025-06-14] MEDS: ZESTRIL 30 MG PO ×2 (03:25→08:25)
[2025-06-14 03:26] LABS: APTT 133.1 Sec (23.4-35.0)
[2025-06-14 03:56] LABS: Troponin I 0.022 ng/ml
[2025-06-14] MEDS: LOPRESSOR 12.5 MG PO ×2 (05:42→20:01)
--- NOTE | 2025-06-14 06:23 | PTCARENOTE ---
Pt bp was persistently elevated overnight. Hydralazine ivp , Lisinopril, and morning Toprol dose given earlier per CT MAGDALENE Ramirez orders.
[2025-06-14 06:25] LABS: Blood Urea Nitrogen 22 mg/dl (9-20); Calcium 8.9 mg/dl (8.4-10.2); Carbon Dioxide 24 mmol/L (22-30); Chloride 109 mmol/L (98-107); Estimated Creatinine Clearance 74 ml/min; Glucose 95 mg/dl (70-99); HDL Cholesterol 54 mg/dl; LDL Cholesterol, Calculated 73 mg/dl; Potassium 3.8 mmol/L (3.5-5.1); Sodium 140 mmol/L (135-145); Very Low Density Lipoprotein 19 mg/dl (0-30); eGFR > 60.00
--- NOTE | 2025-06-14 07:14 | W.PN.HOSP.TC ---
Today's Communication/Plan
-
See plan
Assessment / Plan
Assessment / Plan
Physical Exam
General: Not in acute distress
HEENT: Normocephalic
Neck: Supple
Lungs: Clear to Auscultation Bilaterally
Heart: S1, S2 present. RRR.
Gastrointestinal: Positive bowel sounds, soft, nontender
Extremities: No cyanosis. No edema.
Skin: Warm and dry
Neurological: Awake, Alert and Oriented x3. Nonfocal/grossly intact.
Psychiatric: Calm. Intact Judgement/Insight
Assessment/Plan
74-year-old male with history of coronary artery disease status post stent in 1997 and CABG in 2007, hypertension, A-fib with a recent cardioversion 3 months prior to presentation, stress test and anticoagulated with Eliquis and pain and
osteoarthritis of the right hip over the 6 months (prior to presentation) which recently got better/resolved -- preventing him from walking around much and playing golf, recently his right hip pain got better and he is able to walk and start walking
again over the last few days anytime he walks, developed a centrally located chest pain and pressure mild to moderate with no radiation and usually eases up when he rests and sits down admit couple episodes of the nausea and sweating but no
vomiting, denied any cough or congestion or shortness of breath fever or chills or any bleeding.
Recurrent chest pain
- Concerning for coronary artery disease with known history of CABG and stenting.
- Seen by cardiology and planning cardiac cath today
- N.p.o. until after cath
- Hold Eliquis. Heparin Drip
- Continue metoprolol, lisinopril and monitor vital signs closely
- Monitor vital sign and advise about monitoring blood pressure as he is not checking it regularly.
Hypertensive urgency
- Continue home lisinopril and metoprolol
- Amlodipine added given persistently high blood pressures
- Low sodium diet when diet is resumed
Coronary artery disease status post stent and CABG
CAD with history of stenting, followed by CABG 2007
- Known history, continue atorvastatin, lisinopril, metoprolol
- Plan for cardiac cath tomorrow
Paroxysmal Atrial Fibrillation
- Status post cardioversion 3 months prior to presentation
- Takes Eliquis and metoprolol
- Hold Eliquis until cath. Heparin Drip given chest pain as above.
Hyperlipidemia
- Does not tolerate more statin than his home statin of Atorvastatin 10 mg PO QPM
- LDL not at goal, goal less than 55. LDL 73 here.
- Consideration for Ezetimibe or Repatha
CODE STATUS full code
DVT prophylaxis: SCDs. Heparin Drip.
Will change to inpatient if patient gets stent from cardiac cath.
Anticipated Discharge: Within 24 hours
Subjective/Interval History
-
Date of Service: June 14, 2025
Patient was seen and examined. He denied any chest pain or shortness of breath at rest.
Objective Data
-
Labs:
Laboratory Results
06/13/25 06/14/25 06/14/25
20:25 03:04 11:15
APTT 32.1 133.1 H Pending
Sodium 140
Potassium 3.8
Chloride 109 H
Carbon Dioxide 24
BUN 22 H
Creatinine 0.9
Glucose 95
Calcium 8.9
Vital Signs:
Vital Signs
Temp Pulse Resp BP Pulse Ox
97.9 F 75 16 179/98 96
06/14/25 02:51 06/14/25 06:30 06/14/25 02:51 06/14/25 05:42 06/14/25 02:51
[2025-06-14] MEDS: LOW STRENGTH ASPIRIN 81 MG PO (08:26)
[2025-06-14 09:28] LABS: Glycohemoglobin (HgbA1c) 6.0 % (4.0-5.6)
--- NOTE | 2025-06-14 10:20 | W.PN.CD ---
Today's Communication / Plan
-
For cath today
As outpatient will offer adding either ezetimibe or Repatha
I reviewed that if afib worsens that he would be a good ablation candidate
I will add amlodipin for better blood pressure control
Impression / Plan
-
Chest discomfort:
- Progressive anginal chest pain remote from PCI and CABG
- IV heparin
- For ammunition assembly i laborer/revascularization
Mixed hyperlipidemia
- Does not tolerate more statin
- LDL not at goal, goal less than 55. LDL 73 here
- Will move to adding either ezetimibe or Repatha
CAD with hx stenting, followed by CABG 2007
PAF:
-stable in SR
-on Eliquis for OAC. Hold AM dose prior to cath.
-I reviewed that if afib worsens that he would be a good ablation candidate
HTN:
-elevated in ER
-continue ACEI and BB and monitor- may need adjustment upward in BP meds
- I will add amlodipine
Subjective:
No CP or palps
Physical Exam
Vital Signs/Labs
Vital Signs
Temp Pulse Resp BP Pulse Ox
98.2 F 65 16 162/103 97
06/14/25 08:14 06/14/25 08:17 06/14/25 08:14 06/14/25 08:17 06/14/25 08:28
06/13/25 06/14/25 06/15/25
06:59 06:59 06:59
Actual Weight 88.1 kg
06/13/25 12:10
06/14/25 03:04
APTT 133.1 Sec (23.4-35.0) H 06/14/25 03:04
Triglycerides 95 mg/dl (10-149) 06/14/25 03:04
LDL Cholesterol, Calc 73 mg/dl 06/14/25 03:04
VLDL Cholesterol, Calc 19 mg/dl (0-30) 06/14/25 03:04
HDL Cholesterol 54 mg/dl 06/14/25 03:04
LAB Results
06/13/25 06/13/25 06/13/25
12:10 14:59 20:25
Troponin I 0.022 0.024 0.025
06/13/25 06/14/25
22:56 03:04
Troponin I 0.028 0.022
Physical Exam
Constitutional: No acute distress
EENT: Anicteric
Cardiovascular: Rhythm & rate is regular and Pedal edema is absent
Respiratory: Respiratory effort normal and Lungs clear to auscul.
GI: Soft and Distention absent
Data Reviewed
-
Date of Service: June 14, 2025
--- NOTE | 2025-06-14 11:04 | CM ---
Reviewed chart. Met with and Mrs. Perkins to review discharge plans. He states prior to admission he resides with his spouse in a two story home with two steps toe nter. He states the primary suite is on the first floor. He states prior to
admission he was independent with ambulation and adls. He states he does not have any DME in the. He states he has a prescription plan and uses [facility]. Medical work-up in progress. The discharge plan is to return home with his spouse when
medically stable.
[2025-06-14 11:42] LABS: APTT 63.2 Sec (23.4-35.0)
[2025-06-14] MEDS: NORVASC 2.5 MG PO (13:19)
--- NOTE | 2025-06-14 17:53 | PTCARENOTE ---
Pt anxiously awaiting cardiac cath, BP 192/90 @13:00. Pt denied any discomfort. Pt states he has 'whitecoat syndrome'. notified, pt given norvasc 2.5mgs @13:20. 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
[2025-06-14 18:30] LABS: ACT-LR - POC 360 Seconds (116-155)
--- NOTE | 2025-06-14 19:33 | ITS.CL.PN ---
Steam Hoist Operator - Procedure Note
Procedure
Procedure Note:
CARDIAC CATHETERIZATION REPORT
Date of Procedure: 06/14/2025
Referring: Dr. Oswaldo Hudson MD
Indication: Unstable angina
PROCEDURE(S)
1. left heart catheterization
2. coronary angiography
3. bypass graft angiography
3. PCI with MISA to LAD
ACCESS: 6F left radial artery (closure: radial band)
CATHETERS
1. 6F JR4
2. 6F JL4
3. 6F MISHA
4. 6F EBU3.75 guide
MODERATE SEDATION: 90 minutes of moderate sedation was utilized. An independent medical numerical control operator was present to assist with and help manage the patient's level of consciousness and physiologic status.
HEMODYNAMIC DATA
LV 171/17 (EDP 21) mmHg
AO 168/95 (mean 126) mmHg
CORONARY ANGIOGRAPHY
Dominance: Right
LM: large vessel with mild distal tapering
LAD: large vessel giving rise to two small diagonal branches. There is a prior stent in the proximal LAD with 95% ISR and TIMI2 flow distally. D1 is totally occluded and supplied via the SVG.
LCx: moderate caliber vessel giving rise to a large OM1, small OM2, and small OM3. There is mild diffuse disease and a focal 60% stenosis in the proximal OM1. Competitive flow is seen in the OM1.
RCA: large vessel giving rise to a large RPDA and three small RPL branches. There is mild non-obstructive disease.
BYPASS GRAFT ANGIOGRAPHY:
LOPEZ-LAD: the LOPEZ is atretic and terminates prior to the LAD.
SVG-Diag-OM: the SVG form a patent anastomosis with the the diagonal where there is ~80% narrowing in the diagonal immediately proximal and distal to the anastomosis but brisk flow antegrade and retrograde back to the proximal diagonal COACH. The SVG
subsequently forms a patent anastomosis with the large marginal branch which fills briskly and provides retrograde flow back to the distal OM branches with competitive flow seen from the proximal LCx.
PCI with MISA to LAD
The left main was engaged with an EBU 3.75 guide catheter. A Runthrough wire was able to traverse the lesion but unable to be advanced distally in the LAD due to friction within the lesion segment. A whisper wire was successfully able to transverse
the lesion and was placed in the distal LAD. The Runthrough wire was left in place to serve as a valentín wire and to provide cutting angioplasty effect from subsequent balloon inflations over the Whisper. Serial balloon inflation was performed with a
2.0 mm semicompliant balloon with significant waist noted at the site of severe stenosis. Further lesion preparation was performed with a 2.5 mm NC balloon to high-pressure also with waist noted. Due to technical issues with the IVUS system, images
were unable to be displayed from the catheter. Angiographically there appeared to be at least moderate calcification outside the stent at the site of the most severe stenosis. The decision was made to proceed with further very high pressure NC
balloon inflation with bailout Shockwave lithotripsy if still unable to achieve lesion expansion. With the aid of a 6 Syrian Guideliner, a 2.75 mm NC balloon was delivered inflated at very high pressure (24 mike for 30 seconds serially). This
resulted in full expansion and resolution of the residual waist. A 2.75 x 30 mm Vickey frontier Drugeluting stent was selected but was unable to be delivered distally. Thus, using a 2.0 mm semicompliant balloon the 6 Syrian GuideLiner was inchwormed
distally in the LAD allowing delivery and unsheating of the stent which was deployed at 16 mike with full expansion. Postdilation was performed to the distal edge with a 2.5 mm NC balloon to 16 mike. Attempts at delivering a 2.75 NC balloon were met
with difficulty, with the balloon failing to advance past the proximal stent edge. Multiple attempts were made to successfully deliver the balloon including unsuccessful reattempts at inchworming with the 2.0mm semicompliant balloon and use of a
valentín wire. Ultimately, downsizing to a 5 Syrian Guideliner allowed for successful distal inchworming and subsequent delivery of the 2.5 mm NC balloon which was deployed to high-pressure serially sparing the distal edge. Final angiographic result
was excellent. The wire and guide were removed and a TR band placed. The patient was loaded 600 mg of Plavix.
RADIATION: dose 1240 mGy; DAP 71.1 Gy*cm2; fluoroscopy time 50.9 min
CONCLUSIONS
1. Mildly elevated LV filling pressure and no aortic stenosis
2. Coronary angiography and bypass graft angiography as described with new severe ISR in the proximal LAD stent and TIMI2 flow distally.
3. Successful PCI with MISA to proximal LAD (2.75 x 30 mm Vickey Roscoe drug-eluting stent postdilated to high-pressure with a 2.75 mm NC balloon)
RECOMMENDATIONS
1. Triple therapy with ASA/Plavix/Eliquis for 1 week followed by Eliquis/Plavix.
2. Aggressive secondary prevention of CAD and cardiac rehab
Copy to: Dr. Oswalod Hudson MD (oyster floater); Dr. Daniel Victoria MD (PCP)
Signed: Pradip Raymond MD, PhD
[2025-06-14] MEDS: LIPITOR 40 MG PO (20:01)
--- NOTE | 2025-06-14 21:24 | PTCARENOTE ---
Pt rec'd post cath awake,alert. Left radial site with hematoma upon arrival. lab specialist staff placed 2nd R band above site after pressure held manually by 2nd technical laboratory asst staff. Hematoma reduced. Left radial site dry with good radial pulse. Hand is cool
and dusky with R band in place, good radial pulse noted-pt denies discomfort. Pt aware of limb restrictions. IVF completed. Heparin drip to be restarted at midnight.
[2025-06-15] MEDS: HEPARIN 25000 UNITS/250 ML IV (00:08)
[2025-06-15 02:48] VITALS: BP 170/82
--- NOTE | 2025-06-15 02:51 | PTCARENOTE ---
At 0235 Left radial drsg noted to bleeding. drsg removed, pressure held x 10 min with hemostasis achieved. area cleansed with nss and new drsg placed.
[2025-06-15 06:29] LABS: Hematocrit 42.9 % (39.0-52.0); Hemoglobin 15.0 g/dL (13.0-18.0); Mean Corp Hgb Conc. 35.0 g/dL (33.0-37.0); Mean Corpuscular Volume 85.8 fL (80.0-94.0); Platelet Count 178 10^3/uL (130-400); Red Cell Dist. Width 13.2 % (11.5-14.5)
[2025-06-15 06:43] LABS: APTT 79.0 Sec (23.4-35.0)
[2025-06-15 07:25] LABS: Blood Urea Nitrogen 20 mg/dl (9-20); Carbon Dioxide 25 mmol/L (22-30); Estimated Creatinine Clearance 67 ml/min; eGFR > 60.00
[2025-06-15 07:50] LABS: Calcium 9.5 mg/dl (8.4-10.2); Chloride 107 mmol/L (98-107); Glucose 106 mg/dl (70-99); HDL Cholesterol 60 mg/dl; LDL Cholesterol, Calculated 70 mg/dl; Potassium 4.1 mmol/L (3.5-5.1); Sodium 139 mmol/L (135-145); Very Low Density Lipoprotein 15 mg/dl (0-30)
--- NOTE | 2025-06-15 08:02 | W.PN.HOSP.TC ---
Today's Communication/Plan
-
Discharge today
Assessment / Plan
Assessment / Plan
Physical Exam
General: Not in acute distress
HEENT: Normocephalic
Neck: Supple
Lungs: Clear to Auscultation Bilaterally
Heart: S1, S2 present. RRR.
Gastrointestinal: Positive bowel sounds, soft, nontender
Extremities: No cyanosis. No edema.
Skin: Warm and dry
Neurological: Awake, Alert and Oriented x3. Nonfocal/grossly intact.
Psychiatric: Calm. Intact Judgement/Insight
Assessment/Plan
74-year-old male with history of coronary artery disease status post stent in 1997 and CABG in 2007, hypertension, A-fib with a recent cardioversion 3 months prior to presentation, stress test and anticoagulated with Eliquis and pain and
osteoarthritis of the right hip over the 6 months (prior to presentation) which recently got better/resolved -- preventing him from walking around much and playing golf, recently his right hip pain got better and he is able to walk and start walking
again over the last few days anytime he walks, developed a centrally located chest pain and pressure mild to moderate with no radiation and usually eases up when he rests and sits down admit couple episodes of the nausea and sweating but no
vomiting, denied any cough or congestion or shortness of breath fever or chills or any bleeding.
Unstable angina status post PCI to LAD for New Severe In-Stent Restenosis (ISR) on 06/14/25
- Concerning for coronary artery disease with known history of CABG and stenting.
- Seen by cardiology
- Continue Eliquis
- Continue metoprolol, lisinopril and monitor vital signs closely
- Continue Eliquis, Plavix and Aspirin triple therapy for 7 days (day 1 is 06/15/25, and Day 7 will be 06/21/25); on 06/22/25, stop Aspirin but continue Plavix and Eliquis
- Cardiac Rehab
Mildly elevated LV filling pressure on Cardiac Cath 06/14/25
Hypertensive urgency
- Continue home lisinopril and metoprolol
- Amlodipine added given persistently high blood pressures
- Low sodium diet when diet is resumed
- Patient feels this is related to hospitalization and does NOT want additional meds; cardiology and PCP will monitor outpt -- will still offer/send Amlodipine on discharge so that patient can take it if he wants to
Coronary artery disease status post stent and CABG
CAD with history of stenting, followed by CABG 2007
- Known history, continue atorvastatin, lisinopril, metoprolol
- Cardiac cath with stent above
Paroxysmal Atrial Fibrillation
- Status post cardioversion 3 months prior to presentation
- Takes Eliquis and metoprolol
- Continue Eliquis
Hyperlipidemia
- Does not tolerate more statin than his home statin of Atorvastatin 10 mg PO QPM
- LDL not at goal, goal less than 55. LDL 73 here.
- Consideration for Ezetimibe or Repatha -- discuss with outpatient cardiology office in the upcoming week
CODE STATUS full code
DVT prophylaxis: SCDs. Eliquis
More than 30 minutes spent in discharge including
Final examination of the patient
Summarizing hospital stay
Instructions for continuing care to all relevant caregivers
Preparation of discharge records, prescriptions, and referral forms
Total time spent (in minutes): 38
Anticipated Discharge: Today
Subjective/Interval History
-
Date of Service: June 15, 2025
Patient was seen and examined. He denied any chest pain, shortness of breath, or any other complaints.
Objective Data
-
Labs:
Laboratory Results
06/14/25 06/15/25 06/15/25
18:20 06:19 13:00
WBC 11.3 H
Hgb 15.0
Hct 42.9
Plt Count 178
APTT Cancelled 79.0 H Pending
Sodium 139
Potassium 4.1
Chloride 107
Carbon Dioxide 25
BUN 20
Creatinine 1.0
Glucose 106 H
Calcium 9.5
Vital Signs:
Vital Signs
Temp Pulse Resp BP Pulse Ox
98.3 F 74 18 170/82 98
06/15/25 02:51 06/15/25 06:15 06/15/25 02:51 06/15/25 02:48 06/15/25 02:51
I&O
06/14/25 06/15/25 06/16/25
06:59 06:59 06:59
Intake Total 120 / 120
Output Total 300 / 300
Balance -180 / -180
[2025-06-15 08:06] VITALS: BP 129/90
[2025-06-15] MEDS: LOPRESSOR PO (08:31)
[2025-06-15] MEDS: LOW STRENGTH ASPIRIN 81 MG PO (08:31)
[2025-06-15] MEDS: PLAVIX 75 MG PO (08:32)
[2025-06-15] MEDS: ZESTRIL 30 MG PO (08:33)
[2025-06-15] MEDS: ELIQUIS 5 MG PO (08:42)
[2025-06-15] MEDS: LOPRESSOR 12.5 MG PO (08:43)
--- NOTE | 2025-06-15 11:15 | PTCARENOTE ---
Pt ambulated in [place] for 20 min, lashaun well, no c/o chest pain.
[2025-06-15 11:49] VITALS: BP 155/94
--- NOTE | 2025-06-15 13:40 | W.PN.CD ---
Today's Communication / Plan
-
Eliquis plavix aspirin for 7 days then plavix eliquis thereafter
OK to d/c
will setup follow up
Impression / Plan
-
Unstable anigna s/p PCI to LAD
- Eliquis plavix aspiprin until Tuesday; then drop aspirin and continue plavix Eliquis
Mixed hyperlipidemia
- Does not tolerate more statin
- LDL not at goal, goal less than 55. LDL 73 here
- Will move to adding either ezetimibe or Repatha
CAD with hx stenting, followed by CABG 2007
- as above
PAF:
-SR
- resume Eliquis
HTN:
-elevated in ER
-continue ACEI and BB and monitor- may need adjustment upward in BP meds
- Feels related to hospitalization does NOT want additoinal meds; will monitor outpt
Subjective:
Feels well ready to d/c
Physical Exam
Vital Signs/Labs
Vital Signs
Temp Pulse Resp BP Pulse Ox
98.1 F 84 14 129/90 97
06/15/25 11:48 06/15/25 11:48 06/15/25 11:48 06/15/25 08:33 06/15/25 11:48
06/14/25 06/15/25 06/16/25
06:59 06:59 06:59
Actual Weight 194 lb 3.636 oz
06/15/25 06:19
06/15/25 06:19
APTT Cancelled 06/15/25 13:00
Triglycerides 79 mg/dl (10-149) 06/15/25 06:19
LDL Cholesterol, Calc 70 mg/dl 06/15/25 06:19
VLDL Cholesterol, Calc 15 mg/dl (0-30) 06/15/25 06:19
HDL Cholesterol 60 mg/dl 06/15/25 06:19
LAB Results
06/13/25 06/13/25 06/13/25
12:10 14:59 20:25
Troponin I 0.022 0.024 0.025
06/13/25 06/14/25
22:56 03:04
Troponin I 0.028 0.022
Physical Exam
Constitutional: No acute distress and Comfortable
EENT: Anicteric
Cardiovascular: Rhythm & rate is regular and Pedal edema is absent
Respiratory: Respiratory effort normal and Lungs clear to auscul.
GI: Soft
Neuro/Psych: AO x 3
Other: Cath Site (c/d/i)
Data Reviewed
-
Date of Service: June 15, 2025
Medical Decision Making: Reviewed Test Results
EKG: Tracing Personally Visualized and interpreted (sr)
Echo: Report Reviewed by me
Labs: Labs Reviewed by me
--- NOTE | 2025-06-15 14:23 | W.DCSUMMARY ---
Discharge Summary
Discharge Data
Date of Admission: 06/13/25
Date of Discharge: 06/15/25
Total time spent discharging patient (in min): 38
-
Pending Results: No
Hospital Course
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 The chest pain mainly came on with exertion -- after walking for
several minutes. Patient said the chest pain felt like his previous angina kind of chest pain. Heparin Drip was started, and his home Eliquis was held. Given his high blood pressure, Amlodipine was added to his blood pressure regimen. On 06/14/25,
patient had cardiac cath, and it showed mildly elevated LV filling pressure and no aortic stenosis, coronary angiography and bypass graft angiography as described with new severe ISR in the proximal LAD stent and TIMI2 flow distally and successful
PCI with MISA to proximal LAD (2.75 x 30 mm Vickey Bent drug-eluting stent postdilated to high-pressure with a 2.75 mm NC balloon). Paper Reel Operator recommended triple therapy with ASA/Plavix/Eliquis for 1 week followed by discontinuation of Aspirin
but continuation of Eliquis/Plavix, as well as aggressive secondary prevention of CAD and cardiac rehab. Patient's statin was increased and he tolerated it in the hospital (it was noted previously that patient did not tolerate increased dose of
statin). Patient was doing well and stable for discharge.
Discharge Plan
-
Patient Disposition: Home (Routine Discharge)
Discharge Diagnosis/Procedures: Angioplasty and stent to Left Anterior Descending artery
Unstable angina status post PCI to LAD for New Severe In-Stent Restenosis (ISR) on 06/14/25
Mildly elevated Left Ventricular filling pressure on Cardiac Cath 06/14/25
Hypertensive urgency
Coronary artery disease status post stent, followed by CABG in 2007
CAD with history of stenting, followed by CABG 2007
Paroxysmal Atrial Fibrillation
Hyperlipidemia
Condition: Good
Diet: Low Fat, Low Cholesterol, Low Sodium and 2 Gram Sodium
Activity: As tolerated
Blood Work: CBC, BMP and Magnesium with your primary care provider's office in 3 to 4 days
Other Services: Cardiac Rehab
Instructions: Apixaban, Amlodipine, Aspirin, Atorvastatin, Clopidogrel
Stand Alone Forms: DC Instructions- Cath/EP Lab
Referrals:
Johanna Daniel CRNP [Specified Professional Personl, Cardiology] - 07/09/25 9:40 am
Daniel Victoria MD [Family Provider, Internal Medicine] - in less than 1 week
Referral Note: Hospitalization follow-up for stenting of severe in-stent restenosis of cardiac stent. Will need repeat CBC, BMP on 06/17/25 to 06/21/25 at some point
Additional Discharge Medication Instructions: Continue Eliquis, Plavix and Aspirin triple therapy for 7 days (Day 1 is 06/15/25, and Day 7 will be 06/21/25), HOWEVER, starting on 06/22/25, STOP Aspirin BUT CONTINUE taking Plavix and Eliquis
Once you go home, your next dose of Aspirin 81 mg daily (which you will take through 06/21/25, and then stop, as above) is on 06/16/25.
Amlodipine is a new medication which is being prescribed to help control your blood pressure.
Atorvastatin has been increased to 40 mg daily (from your home 10 mg daily) -- this is so that you have more cardioprotective effects -- and this is very important. If you cannot tolerate the newly increased Atorvastatin at this dose of 40 mg daily,
please contact the outpatient cardiology office right away. In such a case (in which you cannot tolerate increased Atorvastatin dose), your Atorvastatin dose would have to be decreased, and then you would need to be started on Ezetimibe or Repatha
as soon as possible.
CONTACT YOUR OUTPATIENT CARDIOLOGY OFFICE FOR REFILLS ON THE ABOVE MEDICATIONS (EXCEPT THE ASPIRIN)
Prescriptions:
New
atorvastatin 40 mg Tablet
40 mg PO QPM Qty: 30 1RF
aspirin 81 mg Tablet,Chewable
81 mg PO DAILY Qty: 6 0RF
Rx Instructions:
Start on 06/16/25. Continue through 06/21/25, and then stop.
amlodipine 5 mg Tablet
2.5 mg PO DAILY Qty: 30 0RF
clopidogrel 75 mg Tablet
75 mg PO DAILY Qty: 30 11RF
Continued
metoprolol tartrate 25 MG tablet
12.5 mg PO BID
Eliquis 5 mg tablet
5 mg PO BID Qty: 90 0RF
lisinopril 30 mg Tablet
30 mg PO DAILY
coQ10 (ubiquinol) 100 mg Capsule
100 mg PO DAILY
Discontinued
atorvastatin 10 MG tablet
10 mg PO QPM
Discharge Orders:
Discharge Patient (As Directed); Ordered 06/15/25
Ordered By: Declan Catherine
Care Plan Goals
Care Plan Goals:
Problem: Readiness for enhanced knowledge related to diagnosis and treatment plan
Goal: Understand your diagnosis and treatment plan needs, including medications if applicable.
Instructions: Know your diagnosis, underlying causes and treatment plan options, including medications if applicable. Consult with your health care team to learn about your diagnosis and treatment plan, including medications if applicable.
Discharge Date and Time
Discharge Date/Time: 06/15/25 14:55
Print Language: [email or web address]
[2025-06-17 07:58] LABS: ACT-LR - POC 287 Seconds (116-155)
[2025-06-17 07:58] LABS: ACT-LR - POC > 397 Seconds (116-155)
[2025-06-17 07:58] LABS: ACT-LR - POC > 397 Seconds (116-155)
== END 2025-06-15 14:55 | disposition home or self-care (01) | DRG 322 ==
LOC: IVU 20:29
PROVIDERS: Nurse Practitioner; Nurse Practitioner Family; Physician Assistant; Student in an Organized Health Care Education/Training Program; ADMITTING PHYSICIAN Internal Medicine; ATTENDING PHYSICIAN Hospitalist; CONSULT PHYSICIAN Internal Medicine Cardiovascular Disease; EMERGENCY PHYSICIAN Emergency Medicine; FAMILY PHYSICIAN Internal Medicine
PROC: 4A023N7 Measurement of Cardiac Sampling and Pressure, Left Heart, Percutaneous Approach (ICD-10-PCS; 2025-06-14)
PROC: B2121ZZ Fluoroscopy of Single Coronary Artery Bypass Graft using Low Osmolar Contrast (ICD-10-PCS; 2025-06-14)
PROC: 027034Z Dilation of Coronary Artery, One Artery with Drug-eluting Intraluminal Device, Percutaneous Approach (ICD-10-PCS; 2025-06-14)
PROC: B2111ZZ Fluoroscopy of Multiple Coronary Arteries using Low Osmolar Contrast (ICD-10-PCS; 2025-06-14)
DX: T82.855A Stenosis of coronary artery stent, initial encounter (principal); I25.110 Atherosclerotic heart disease of native coronary artery with unstable angina pectoris; I48.0 Paroxysmal atrial fibrillation; I10 Essential (primary) hypertension; I73.9 Peripheral vascular disease, unspecified; E78.2 Mixed hyperlipidemia; M16.11 Unilateral primary osteoarthritis, right hip; I16.0 Hypertensive urgency; Y83.1 Surgical operation with implant of artificial internal device as the cause of abnormal reaction of the patient, or of later complication, without mention of misadventure at the time of the procedure; Y92.9 Unspecified place or not applicable; Z82.49 Family history of ischemic heart disease and other diseases of the circulatory system; Z79.82 Long term (current) use of aspirin; Z85.820 Personal history of malignant melanoma of skin; Z85.46 Personal history of malignant neoplasm of prostate; Z79.01 Long term (current) use of anticoagulants; Z95.1 Presence of aortocoronary bypass graft
CPT/HCPCS: 80048; 80053; 80061; 83036; 84484; 85025; 85027; 85347; 85730; 92972; 93005; 93459; 99152; 99153; 99285; C1725; C1753; C1761; C1769; C1874; C1894; C9600; Q9967

== ENCOUNTER → 2025-06-18 13:08 | Outpatient (REF) | payer MEDICARE, OTHER, SELFPAY ==
[2025-06-18 13:43] LABS: Hematocrit 42.7 % (39.0-52.0); Hemoglobin 14.2 g/dL (13.0-18.0); Mean Corp Hgb Conc. 33.3 g/dL (33.0-37.0); Mean Corpuscular Volume 87.3 fL (80.0-94.0); Nucleated Red Blood Cells % 0 % (-); Platelet Count 202 10^3/uL (130-400); Red Cell Dist. Width 13.7 % (11.5-14.5)
[2025-06-18 14:03] LABS: ALT (SGPT) 39 U/L (0-50); AST (SGOT) 34 U/L (17-59); Albumin 4.5 g/dl (3.5-5.0); Alkaline Phosphatase 55 U/L (38-126); Blood Urea Nitrogen 33 mg/dl (9-20); Calcium 10.0 mg/dl (8.4-10.2); Carbon Dioxide 28 mmol/L (22-30); Chloride 107 mmol/L (98-107); Glucose 91 mg/dl (70-99); Magnesium 2.3 mg/dl (1.6-2.3); Potassium 4.8 mmol/L (3.5-5.1); Sodium 141 mmol/L (135-145); Total Protein 7.6 g/dl (6.3-8.2); eGFR > 60.00
[2025-06-18 15:16] LABS: PSA, Total - Diagnostic 118.00 ng/ml (0.0-4.0)
== END ==
LOC: REG 13:08
PROVIDERS: ATTENDING PHYSICIAN Internal Medicine Hematology & Oncology; FAMILY PHYSICIAN Internal Medicine; REFERRING PHYSICIAN Internal Medicine Cardiovascular Disease
DX: C61 Malignant neoplasm of prostate (principal); C79.51 Secondary malignant neoplasm of bone; I25.10 Atherosclerotic heart disease of native coronary artery without angina pectoris; Z95.5 Presence of coronary angioplasty implant and graft; I48.0 Paroxysmal atrial fibrillation; I10 Essential (primary) hypertension; E78.00 Pure hypercholesterolemia, unspecified; I71.43 Infrarenal abdominal aortic aneurysm, without rupture; Z09 Encounter for follow-up examination after completed treatment for conditions other than malignant neoplasm
CPT/HCPCS: 36415; 80053; 83735; 84153; 85025

== ENCOUNTER 2025-08-02 10:37 | Outpatient (RCR) | payer MEDICARE, OTHER, SELFPAY | END 2025-08-02 23:59 | disposition home or self-care (01) | LOC: CRHB 10:37 | PROVIDERS: ATTENDING PHYSICIAN Internal Medicine Cardiovascular Disease | DX: I25.10 Atherosclerotic heart disease of native coronary artery without angina pectoris (principal); Z95.5 Presence of coronary angioplasty implant and graft | CPT/HCPCS: G0422; G0423 ==

== ENCOUNTER → 2025-08-14 11:03 | Outpatient (REF) | payer MEDICARE, OTHER, SELFPAY ==
[2025-08-14 12:13] LABS: Hematocrit 44.3 % (39.0-52.0); Hemoglobin 14.6 g/dL (13.0-18.0); Mean Corp Hgb Conc. 33.0 g/dL (33.0-37.0); Mean Corpuscular Volume 89.3 fL (80.0-94.0); Nucleated Red Blood Cells % 0 % (-); Platelet Count 201 10^3/uL (130-400); Red Cell Dist. Width 12.8 % (11.5-14.5)
[2025-08-14 12:38] LABS: ALT (SGPT) 32 U/L (0-50); AST (SGOT) 34 U/L (17-59); Albumin 4.4 g/dl (3.5-5.0); Alkaline Phosphatase 59 U/L (38-126); Blood Urea Nitrogen 20 mg/dl (9-20); Calcium 9.8 mg/dl (8.4-10.2); Carbon Dioxide 31 mmol/L (22-30); Chloride 104 mmol/L (98-107); Glucose 78 mg/dl (70-99); Potassium 5.0 mmol/L (3.5-5.1); Sodium 139 mmol/L (135-145); Total Protein 7.2 g/dl (6.3-8.2); eGFR > 60.00
[2025-08-14 13:08] LABS: PSA, Total - Diagnostic 55.10 ng/ml (0.0-4.0)
== END ==
LOC: REG 11:03
PROVIDERS: ATTENDING PHYSICIAN Internal Medicine Hematology & Oncology; FAMILY PHYSICIAN Internal Medicine
DX: C61 Malignant neoplasm of prostate (principal); C79.51 Secondary malignant neoplasm of bone
CPT/HCPCS: 36415; 80053; 84153; 85025

== ENCOUNTER 2025-08-30 10:01 | Outpatient (RCR) | payer MEDICARE, OTHER, SELFPAY | END 2025-08-30 23:59 | disposition home or self-care (01) | LOC: CRHB 10:01 | PROVIDERS: ATTENDING PHYSICIAN Internal Medicine Cardiovascular Disease; FAMILY PHYSICIAN Internal Medicine | DX: I25.10 Atherosclerotic heart disease of native coronary artery without angina pectoris (principal); Z95.5 Presence of coronary angioplasty implant and graft (principal); Z95.1 Presence of aortocoronary bypass graft | CPT/HCPCS: G0422; G0423 ==

== ENCOUNTER → 2025-09-13 09:15 | Outpatient (REF) | payer MEDICARE, OTHER, SELFPAY ==
[2025-09-13 10:44] LABS: Hematocrit 47.0 % (39.0-52.0); Hemoglobin 15.8 g/dL (13.0-18.0); Mean Corp Hgb Conc. 33.6 g/dL (33.0-37.0); Mean Corpuscular Volume 87.0 fL (80.0-94.0); Nucleated Red Blood Cells % 0 % (-); Platelet Count 197 10^3/uL (130-400); Red Cell Dist. Width 12.5 % (11.5-14.5)
[2025-09-13 11:16] LABS: ALT (SGPT) 30 U/L (0-50); AST (SGOT) 33 U/L (17-59); Albumin 4.6 g/dl (3.5-5.0); Alkaline Phosphatase 68 U/L (38-126); Blood Urea Nitrogen 22 mg/dl (9-20); Calcium 9.7 mg/dl (8.4-10.2); Carbon Dioxide 27 mmol/L (22-30); Chloride 104 mmol/L (98-107); Glucose 98 mg/dl (70-99); Potassium 4.3 mmol/L (3.5-5.1); Sodium 140 mmol/L (135-145); Total Protein 7.9 g/dl (6.3-8.2); eGFR > 60.00
[2025-09-13 11:42] LABS: PSA, Total - Diagnostic 62.30 ng/ml (0.0-4.0)
== END ==
LOC: REG 09:15
PROVIDERS: ATTENDING PHYSICIAN Internal Medicine Hematology & Oncology; FAMILY PHYSICIAN Internal Medicine
DX: C61 Malignant neoplasm of prostate (principal); C79.51 Secondary malignant neoplasm of bone
CPT/HCPCS: 36415; 80053; 84153; 85025